=== PATIENT | female | born 1970 | race Caucasian/White ===

== ENCOUNTER 2018-01-11 09:37 | Inpatient (IN) | payer OTHER ==
[2018-01-11 10:05] LABS: #Eosinphils 0.1 thou/uL (0.0-0.7); #Lymphocytes 1.1 thou/uL (1.20-3.40); #Monocytes 0.4 thou/uL (0.11-0.59); #Neutrophils 5.8 thou/uL (1.40-6.50); %Basophils 0.6 % (0.0-1.0); %Eosinophils 0.9 % (0.0-10.0); %Lymphocytes 14.9 % (21.0-51.0); %Monocytes 5.8 % (0.0-10.0); %Neutrophils 77.9 % (42.0-75.0); Hemoglobin 13.9 g/dL (12.0-16.0); Mean Corpuscular HGB CONC 33.6 g/dL (32.0-36.0); Mean Corpuscular Hemoglobin 30.8 pg (27.0-31.0); Mean Corpuscular Volume 91.7 fL (78.0-98.0); Mean Platelet Volume 6.9 fL (7.4-10.4); Platelet Count 251 thou/uL (130-400); RBC Distribution Width 11.1 % (11.5-14.5); Red Blood Cell (RBC) Count 4.52 mill/uL (4.20-5.40); White Blood Cell (WBC) Count 7.4 thou/uL (4.8-10.8)
[2018-01-11 10:12] LABS: Prothrombin Time 12.8 SEC (12.0-14.7)
[2018-01-11 10:16] LABS: BHCG - Serum Negative (NEGATIVE); Pregs Control Background? CLEAR/WHITE (CLR/WHITE); Pregs Control Bar Appear? YES (CONTROL BAR)
[2018-01-11 10:31] LABS: ALT (SGPT) 11 U/L (8-55); AST (SGOT) 14 U/L (5-34); Albumin 3.7 g/dL (3.5-5.0); Alkaline Phosphatase 44 U/L (40-150); Anion Gap 11 mmol/L (10-20); BUN (Urea Nitrogen) 30 mg/dL (7.0-18.7); Bilirubin, Total 0.4 mg/dL (0.2-1.2); Calc. Creatinine Clearance 0 mL/min (70-130); Calcium 9.6 mg/dL (7.8-10.44); Carbon Dioxide 24 mmol/L (22-29); Chloride 105 mmol/L (98-107); Estimated GFR-MDRD 51; Globulin 3.4 g/dL (2.4-3.5); Glucose 120 mg/dL (70-105); Potassium 3.7 mmol/L (3.5-5.1); Protein, Total 7.1 g/dL (6.0-8.3); Sodium 136 mmol/L (136-145)
--- NOTE | 2018-01-11 10:31 | CT ---
HEAD CT WITHOUT CONTRAST: History: Right sided weakness, resolved. Last seen normal two hours ago. Aphasia. FINDINGS: Malacic change involving the left occipital lobe due to remote insult. Otherwise, the cerebrum demons trates preservation of cortical tolbert white matter differentiation. No midline shift. Basilar cisterns are patent. No evidence of hydrocephalus. No parenchymal hemorrhage. No extraaxial hematoma. Calvarium is intact. Adequate aeration of the sinuses and mastoid air cells. IMPRESSION: No acute intracranial process. Results of study discussed with Emergency Department physician, 10-4-1 8 at 9:46 a.m. POS: [facility]
[2018-01-11 10:34] LABS: CKMB 0.8 ng/mL (0-6.6)
--- NOTE | 2018-01-11 11:21 | CT ---
CT ANDIOGRAM OF THE HEAD CT ANGIOGRAM OF THE NECK: HISTORY: Aphasia, right-sided weakness. Symptoms have resolved. COMPARISON: None. TECHNIQUE: CT angiogram of the head and neck are performed in the axial plane. Three-dimensional reformatted im ages are submitted for interpretation. FINDINGS: Stable changes in the left occipital lobe. Adequate aeration of the sinuses and mastoid air cells. Bilateral ocular lenses are appropriately located. Both globes are intact. Retrobulbar fat is prese rved. Aerodigestive tract is patent. No mucosal abnormality. Mild fullness of the left and right p alatine tonsils, nonspecific. Symmetric attenuation of the carotid and submandibular glands. Thyroid gland is unremarkable. No evidence of lymphadenopathy by size criteria. Varying degrees of central canal stenosis and neural foraminal narrowing on the basis of degenerative change. Upper mediastinum and lung bases are unremarkable. CT ANGIOGRMA: The aortic origin has an overall normal appearance. Common origin of the carotid arteries. RIGHT CAROTID: The common carotid artery, carotid bifurcation, and internal carotid artery have appropriate enhancem ent and luminal diameter. There is medial deviation of the right internal carotid artery causing mas s effect upon the posterior right hypopharynx. No significant stenosis in the right carotid based up on NASCET criteria. LEFT CAROTID: Left common carotid artery, carotid bifurcation, and internal carotid artery have appropriate enhance ment and luminal diameter. No significant stenosis based on NASCET criteria. Vertebral arteries are codominant throughout the course of the neck. No significant stenosis. Bilateral subclavian arteries are unremarkable. CT ANGIOGRAM OF THE HEAD: There is no significant stenosis in the intracranial internal carotid arteries. ANTERIOR CIRCULATION: Symmetric enhancement and luminal diameter of the A1 and M1 segments. Proximal A2 segments and proxi mal MCA branches are unremarkable. Both PICA artery origins are unremarkable. Both vertebral arteries supply a normal-appearing basilar artery. Left and right P1 segments have appropriate enhancement and luminal diameter. No significa nt stenosis. IMPRESSION: 1. No significant stenosis of the carotid arteries based upon NASCET criteria. 2. Unremarkable CT angiogram of the [place]. POS: [facility]
[2018-01-11] MEDS ORDERED: ISOVUE-370 76%-LOCM 1 ML ONE (12:28)
[2018-01-11 13:07] VITALS: BMI 38.7
[2018-01-11] MEDS ORDERED: hydrALAZINE 20 MG/ML VIAL SLOW IVP PRN (14:36)
[2018-01-11] MEDS ORDERED: Labetalol HCl 100 MG/20 ML VIAL SLOW IVP PRN (14:36)
[2018-01-11] MEDS ORDERED: Acetaminophen 325 MG TAB PO PRN (14:38)
[2018-01-11] MEDS ORDERED: Ondansetron HCl/PF 4 MG/2 ML Vial IVP PRN (14:38)
[2018-01-11] MEDS ORDERED: Ondansetron ODT 4 MG TAB PO PRN (14:38)
[2018-01-11] MEDS ORDERED: Sodium Chloride 0.9% 1,000 ML IV SCH (14:45)
[2018-01-11 15:52] VITALS: BP 152/92; TEMP 98.7
[2018-01-11] MEDS ORDERED: Atorvastatin Calcium 40 MG TAB PO SCH (21:00)
[2018-01-11] MEDS ORDERED: Famotidine 20 MG TAB PO SCH (21:00)
--- NOTE | 2018-01-11 22:03 | SS ---
PRIMARY CARE PHYSICIAN: Dr. Cote at [facility]. CHIEF COMPLAINT: Stroke like symptoms. HISTORY OF PRESENT ILLNESS: The patient is a 47-year-old female who presented to the emergency room with right arm weakness along with steadiness of speech. The symptoms started this morning while she was at home. She denies any double vision, blurring of vision, facial asymmetry or weakness, numbne ss of any of her extremities. In the emergency room, her vital signs showed temperature 97.8, respirations 20, pulse rate of 88 wit h a blood pressure 132/80 with O2 saturation 98% on room air. CT scan of the brain was negative for acute findings. CT angiogram of the head and neck was negative for significant stenosis. She was ad mitted to the stroke unit. She received aspirin in the emergency room. After arriving to the to the stroke unit, it was found that patient had [employer] insurance. T he patient requested to be transferred to a hospital in [facility] The case was discussed with the hos pitalist at [facility]. The patient will be transferred to that facility for fu rther management. Plan of care was discussed with the patient in detail. She stated understanding. FINAL DIAGNOSES: 1. Transient ischemic attack, suspected cerebrovascular accident. 2. Hypothyroidism. 3. Chronic kidney disease stage 3. 4. Hypertension. Plan of care was discussed with the patient in detail. She stated understanding.
[2018-01-12] MEDS ORDERED: Enoxaparin Sodium 40 MG/0.4 ML SYRINGE SC SCH (09:00)
[2018-01-12] MEDS ORDERED: Aspirin 325 mg Enteric Coated Tablet PO SCH (09:00)
== END 2018-01-11 18:43 | disposition short-term general hospital (02) | DRG 69 ==
LOC: ERS 09:37 → 2SE 12:05
PROVIDERS: ADMIT Internal Medicine; ATTEND Internal Medicine
DX: G45.9 Transient cerebral ischemic attack, unspecified (principal); E03.9 Hypothyroidism, unspecified; I12.9 Hypertensive chronic kidney disease with stage 1 through stage 4 chronic kidney disease, or unspecified chronic kidney disease; N18.3 Chronic kidney disease, stage 3 (moderate)
CPT/HCPCS: 36416; 70450; 70496; 70498; 80053; 82553; 84484; 84703; 85025; 85610; 85730; 93005; 94760; G9165-GN-CI; G9166-GN-CH